=== PATIENT | female | born 1930 | race Caucasian/White ===

== ENCOUNTER 2016-05-16 11:45 | Inpatient (IN) | payer OTHER, MEDICARE ==
[2016-05-16] MEDS ORDERED: ASPIRIN EC 325 MG TAB PO ONE (11:58)
[2016-05-16] MEDS ORDERED: diphenhydrAMINE 25 MG CAP PO ONE (11:58)
[2016-05-16] MEDS ORDERED: DIAZEPAM 5 MG TAB PO ONE (11:58)
[2016-05-16] MEDS ORDERED: NS 1,000 ML IV ONE (11:58)
[2016-05-16] MEDS ORDERED: FAMOTIDINE 20 MG TAB PO ONE (11:58)
--- NOTE | 2016-05-16 12:56 | CPEKG ---
Heart Rate: 90 RR Interval: 667 P-R Interval: 132 QRSD Interval: 70 QT Interval: 368 QTC Interval: 451 P [place]: 58 QRS [place]: 53 T Wave [place]: 8 EKG Severity - NORMAL ECG - EKG Impression: SINUS RHYTHM Electronically Signed By: Alex Nicole 16-May-2016 15:43:32
[2016-05-16] MEDS ORDERED: FAMOTIDINE 20 MG TAB ONE (13:01)
[2016-05-16 13:15] LABS: % IMMATURE GRANULYOCYTES 0.5 % (0.0-1.1); ABSOLUTE IMMATURE GRANULOCYTES 0.03 10^3/uL (0.00-0.10); ADD DIFF? NO; ADD MORPH? NO; ADD SCAN? NO; ATYPICAL LYMPHOCYTE FLAG 10 (0-99); FRAGMENT RBC FLAG 0 (0-99); HEMATOCRIT 43.2 % (38.0-47.0); LEFT SHIFT FLG 0 (0-99); LIPEMIA HEMOLYSIS FLAG 90 (0-99); MEAN CELL HEMOGLOBIN 33.7 pg (27.9-34.1); MEAN CELL HEMOGLOBIN CONCENTR. 34.7 g/dL (32.4-36.7); MEAN CELL VOLUME 97.1 fL (81.5-99.8); MEAN PLATELET VOLUME 10.2 fL (8.7-11.7); PLATELET CLUMPS FLAG 10 (0-99); PLATELET COUNT 222 10^3/uL (150-400); RED BLOOD CELL COUNT 4.45 10^6/uL (4.18-5.33); RED CELL DISTRIBUTION WIDTH 12.7 % (11.5-15.2)
[2016-05-16 13:22] LABS: INR 0.94 (0.83-1.16); PROTIME(PATIENT) 12.5 SEC (12.0-15.0)
[2016-05-16 13:24] LABS: ANION GAP 15 mEq/L (8-16); CALCIUM 9.2 mg/dL (8.5-10.4); CARBON DIOXIDE 24 mEq/l (22-31); CHLORIDE 101 mEq/L (97-110); CHOLESTEROL 169 mg/dL (140-220); CHOLESTEROL/HDL RATIO 2.45 RATIO (1.00-4.44); CREATININE 0.6 mg/dL (0.6-1.0); GLOMERULAR FILTRATION RATE > 60; GLUCOSE 87 mg/dL (70-100); HIGH DENSITY LIPOPROTEIN 69 mg/dL (40-85); LDL/HDL RATIO 1.22 RATIO (1.00-3.22); LOW DENSITY LIPOPROTEIN 84 mg/dL (80-100); MAGNESIUM 1.8 mg/dL (1.6-2.3); NON-HIGH DENSITY LIPOPROTEIN 100 mg/dL (90-129); POTASSIUM 3.5 mEq/L (3.5-5.2); SODIUM 140 mEq/L (134-144); TRIGLYCERIDE 83 mg/dL (35-135); VERY LOW DENSITY LIPOPROTEINS 16 mg/dL (8-25)
[2016-05-16] MEDS ORDERED: LIDOCAINE 1% 30 ML SDV ONE (13:43)
[2016-05-16] MEDS ORDERED: fentaNYL 100 MCG/2 ML INJ ONE (13:44)
[2016-05-16] MEDS ORDERED: IOPAMIDOL (ISOVUE-370) 150 ML BTL IV ONE ×2 (13:44→15:00)
[2016-05-16] MEDS ORDERED: MIDAZOLAM 2 MG/2 ML VIAL ONE (13:44)
[2016-05-16] MEDS ORDERED: VERAPAMIL 5 MG/2 ML VIAL ONE (14:18)
[2016-05-16] MEDS ORDERED: HEPARIN 10,000 UNIT/10 ML MDV ONE (14:18)
[2016-05-16 14:25] LABS: CK-MB INTERPRETATION NEGATIVE (NEGATIVE); TROPONIN I 0.013 ng/mL (0-0.034)
[2016-05-16 14:54] LABS: CREATINE KINASE-MB FRACTION 5.45 ng/mL (0-3.19)
--- NOTE | 2016-05-16 14:55 | SUROPNOTE ---
[facility] Operative Report - Surgery Date of Procedure:05/16/2016 Indication: This patient is an 85 year old woman, with known coronary disease s/ p MN and LAD stenting in 2005, known distal circumflex occlusion, hyperlipidemia , and COPD, presenting with five days of chest pain, aggravated by exertion, now accelerating and occurring at rest. It is associated shortness of breath. [place] cardiovascular class IV angina. Considering the patient's resting chest pain and known 3-vessel coronary disease, stress testing was not performed. Will proceed with right/left heart catheterization. Procedures performed: 1. Right and Left heart catheterization with left ventricular and selective coronary angiography. Description of procedure: Description, risks, benefits and alternatives were discussed in detail. Informed consent was obtained. The patient was brought to the catheterization laboratory where a timeout was performed. The right arm was sterilely prepped and draped. 2% lidocaine utilized for local anesthetic. A 5-Ivorian hemostatic sheath was placed in the right brachial vein utilizing the IV site already present. A 5-Ivorian PWP catheter was utilized for right heart catheterization. Following the right heart catheterization, a 5/6-Ivorian slender hemostatic sheath placed right radial artery utilizing micropuncture technique. Intraarterial verapamil and intravenous heparin was administered. Diagnostic coronary angiography performed with 6-Ivorian, Angelina left-3.5 and Angelina right -4 catheter. Catheters were passed over a J glidewire and 0.035 guidewire. Pigtail catheter was then utilized for left heart catheterization and left ventricular angiography, however there was difficulty crossing the valve initially with the Pigtail catheter. Instead, The JR4 catheter was passed over a straight Glidewire to ultimately cross the valve, and was then exchanged for the Pigtail catheter. Left heart catheterization and left ventricular angiography was performed. Arterial sheath was removed and TR band was placed. Findings: 1. Hemodynamics: Right atrial pressure mean of 8, right ventricular pressure 35 /5/9 end-diastolic, pulmonary artery pressure 35/14, mean of 22, pulmonary capillary wedge pressure mean of 10 with no significant V wave. Aortic pressure 105/58, mean of 69, left ventricular pressure 89/8/14 end-diastolic. There is a small (<10mmHg) pull back gradient across the aortic valve. Aortic valve area calculated at 2.05cm^2. 2. Saturations: Superior vena cava 76.2%, main pulmonary artery 67.6%, Ao 95.7% . Assumed Ray cardiac output 4.9L/min with cardiac index of 2.9L/min/m2. 2. Left ventricle: The left ventricle appears normal in size. Left ventricle is normal shape. Segmental wall motion is normal. The left ventricle is hyperdynamic with an ejection fraction of 75%. There are no filling defects or significant mitral regurgitation. The aortic root and ascending aorta appears normal, there is no aneurysm formation. 3. Coronary angiography: Left main: The left main bifurcates. There is calcific disease with 25% ostial tapering and otherwise luminal irregularities, but no critical lesion. 4. Left anterior descending: This is a moderately large vessel continuing around the apex. Previous proximal LAD stent and balloon angioplasty of the proximal diagonal branch are widely patent. 5. Circumflex: The circumflex has a moderate size high-lateral/ramus intermedius and a relatively small first obtuse marginal branch. The distal circumflex is chronically totally occluded, and a second obtuse marginal and a small posterolateral branch fills from left to left collaterals. The high- lateral branch contains mild-moderate diffuse disease and the first obtuse marginal branch contains diffuse 30-50% disease. 6. Right coronary: Moderately large dominant vessel with proximal and distal 50 % disease. No evidence of progression of disease since 2005. Overall Impression: 1. Moderate three-vessel coronary artery disease, however with no areas of severe disease. This is relatively unchanged from previous. 2. Normal resting right and left heart hemodynamics. 3. Hyperdynamic left ventricle with ejection fraction of 75%. 4. Chest pain, appearing to be non-cardiac. 5. 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 Plan: 1. Hospital admission for falls, dyspnea, and chest pain of unclear etiology. 2. Continue to recommend aggressive risk modification (however the patient has elected to not treat her lipids in the past). 3. Close clinical follow up. Portions of this chart were entered by a scribe. I have reviewed this chart and agree with the documentation. Report scribed for Dr. Brent Welch. Report scribed by Edna Nicholson.
[2016-05-16] MEDS ORDERED: HYDROCODONE/APAP 5/325 TAB PO PRN (15:25)
[2016-05-16] MEDS ORDERED: OXYCODONE/APAP 5/325 TAB PO PRN (15:25)
[2016-05-16] MEDS ORDERED: ONDANSETRON 4 MG/2 ML VIAL IVP PRN (15:25)
[2016-05-16] MEDS ORDERED: NITROGLYCERIN 0.4 MG BTL SL PRN (15:25)
[2016-05-16] MEDS ORDERED: ATROPINE SULFATE 1 MG/10 ML SYR IVP PRN (15:25)
[2016-05-16] MEDS ORDERED: IOPAMIDOL (ISOVUE 370) 100 ML BTL IV ONE (20:05)
--- NOTE | 2016-05-16 21:15 | CT ---
CT Pulmonary Angiogram Clinical Indications: Dyspnea, syncope, positive D-dimer of 1.92. Technique: Thinly collimated multidetector helical CT imaging was performed through the chest while 85 mL Isovue-370 were injected intravenously, without complication. The images were then transferred to an independent workstation where multiplanar and three-dimensional reconstructions were performed by the interpreting physician and reviewed at multiple windows. Dose reduction techniques were util ized. Findings Chest: No pneumonia, pneumothorax, nodules, or pleural effusions are present. Heart size is normal and there is no pericardial effusion. No adenopathy and no pulmonary masses are found. Large hiatal hernia is present. Heart size is normal. No pericardial effusion. Coronary calcifications appear severe. CT Pulmonary Angiogram: Respiratory motion artifacts degrade imaging of the small branches in the lo wer lobes. No convincing intraluminal filling defects are seen in the pulmonary arterial system to s uggest pulmonary embolus. The thoracic aorta has a normal contour, without evidence of aneurysm or d issection. Three right renal arteries are incidentally noted. Impressions 1. No pulmonary emboli. 2. Large hiatal hernia.
--- NOTE | 2016-05-17 10:45 | SOAPPROG ---
[facility] Progress Note Assessment/Plan: Assessment: Cardiology ([facility]) 1. Admit yesterday from our office w/ symptoms c/w accelerating angina, shortness of breath and possible CHF. She described worsening chest pain with both exertion and rest, however different in quality than her prior angina. Taken to shellfish processing laborer yesterday which showed diffuse moderate CAD w/o critical lesions. Chest CTA was negative for PE. Symptoms are not entirely explained. 2. CAD s/p remote anterior DC and LAD stent in 2005. Patient takes aspirin 81 mg as her sole medication. 3. COPD. 4. Worsening bilateral lower extremity edema, likely dependent in nature. LV systolic function is normal. 5. Hyperlipidemia w/ refusal to treat. 6. History of tobacco use, quit in 2005. 7. Aortic valve sclerosis w/o stenosis. 8. Frequent falls / severe gain instability in the setting of adult failure to thrive. PT evaluation most consistent w/ severe deconditioning. Patient lives independently. Patient was seen yesterday in conjunction with son who is very concerned about her home safety. Plan: 1. Hospitalist consult and OT/PT evaluation. Consider SNF placement. 2. Continue daily aspirin. 3. Change to inpatient status due to fall risk, unsafe to go home, further diagnostic testing. 05/19/16 08:06 Objective: Vital Signs Temp Pulse Resp BP Pulse Ox 36.7 C 98 18 118/68 92 05/17/16 07:32 05/17/16 07:32 05/17/16 07:32 05/17/16 07:32 05/17/16 07:32 Laboratory Results 05/16/16 13:00 05/16/16 13:00 05/16/16 05/17/16 05/18/16 05:59 05:59 05:59 Intake Total 1250 Balance 1250 PT 12.5 SEC (12.0-15.0) 05/16/16 13:00 INR 0.94 (0.83-1.16) 05/16/16 13:00 ICD10 Worksheet Patient Problems: Problems Problem Status Diagnosed Chest pain Acute Coronary artery disease Acute
[2016-05-17] MEDS: ASPIRIN 81 MG CHEWABLE TAB PO SCH (15:53)
[2016-05-17 18:52] LABS: COLOR YELLOW; LEUKOCYTE ESTERASE,URINE 1+ (NEGATIVE); NITRITE,URINE NEGATIVE (NEGATIVE)
[2016-05-17 19:19] LABS: RBC,URINE NONE SEEN /hpf (0-3)
--- NOTE | 2016-05-17 20:04 | GCON ---
[f rep st] CONSULTATION INTERNAL MEDICINE CONSULTATION DATE OF CONSULTATION: 05/17/2016 REASON FOR CONSULTATION: Failure to thrive, weakness. HISTORY OF PRESENT ILLNESS: This is an 85-year-old female, who was admitted by Cardiology. She has a history coronary artery disease and came to the sling operator's office with several days of chest di scomfort. She says that it is intermittent and moderate in nature. It is not worse with moving or w ith activity. She denies any shortness of breath. However, she has been having also some unsteadine ss and has fallen a few times. She fell once around [facility] and hit her head on a car. This f all was on the ice. However, 2 days ago she fell again. She states at that time she just woke up a nd felt unsteady and had a fall. She continues to feel unsteady. She denies any dizziness. She als o denies any focal weakness. She denies any dysuria. No fevers or chills. No abdominal pain. No d iarrhea. No new medications. She underwent angiogram, which did not show any worsening of her coronary disease. She does have mirian e aortic sclerosis, but no stenosis. She also had a CTA of her chest, which did not show any pulmona ry embolism. Physical Therapy did see her today and thought she was quite weak and needed a nursing home facility. REVIEW OF SYSTEMS: Ten-point review of systems was obtained and other than stated above was negative . PAST MEDICAL HISTORY: 1. Coronary artery disease. 2. COPD. 3. History of cholecystectomy. MEDICATIONS: Only aspirin. SOCIAL HISTORY: Quit smoking in 2005 when she had her heart attack. Lives alone. FAMILY HISTORY: Both parents are . PHYSICAL EXAM: VITAL SIGNS: Afebrile, blood pressure is 114/66, heart rate is 90, oxygen saturation 90-91% on room air. GENERAL: The patient is well developed, no apparent distress. HEENT: Nonicte selene sclerae. Extraocular movements intact. There is a small amount ecchymosis on the right cheek. NECK: Supple. No thyromegaly. LUNGS: Good effort with decreased breath sounds, but no wheezing. CARDIOVASCULAR: Regular rate and rhythm. There is a 2/6 systolic murmur, heard best at the right up per sternal border. ABDOMEN: Positive bowel sounds. Soft, nontender, nondistended. No hepatosplen omegaly. EXTREMITIES: No clubbing, cyanosis, or edema. SKIN: Without rash. Warm, dry, and intact . NEUROLOGIC: Alert and oriented x3. Has equal strength in all 4 extremities. PSYCH: Normal mood and affect. LABS: CBC is normal. D-dimer is negative. Chemistries completely normal. IMAGING: EKG, personally reviewed and interpreted, shows normal sinus rhythm, no ischemic changes. ASSESSMENT: An 85-year-old female, presenting with falls and generalized weakness, as well as chest pain. PLAN: 1. Chest pain: This appears to be noncardiac. Probably could be some musculoskeletal pain. Could try a little bit of antiinflammatories in case. This seems to be mild in severity. 2. Falls and overall weakness: I am not sure why she is having these. There are no focal neurologi flora findings to suggest stroke. However, could possibly consider MRI if she is not improving. We wi ll check a UA. I do wonder if maybe her first fall in April caused some type of concussion and th us, some generalized weakness. At this point, she does need either a nursing home facility or to be home with 24 hour care. 3. History of coronary artery disease. 4. COPD: This appears to be stable. 5. Aortic sclerosis: There does not seem to be aortic stenosis. Thank you for this consultation. Will follow along with you. /[id number]/MODL
[2016-05-18] MEDS: ASPIRIN 81 MG CHEWABLE TAB PO SCH (08:39)
--- NOTE | 2016-05-18 14:36 | HOSPPROG ---
Hospitalist Progress Note Assessment/Plan: This 85-year-old female new to my care presenting with # weakness and falls which I suspect is due to deconditioning. Patient refuses care home facility placement. # pyuria which seems to be asymptomatic -consider starting antibiotics if she develops symptoms of a UTIs such as pain with urination, frequency, fever, abdominal pain, etc... # chest pain seems atypical -will defer further workup to Cardiology # COPD (stable) Disposition: Patient would like to be discharged under the care of her son. I will discuss this with Dr. Welch and his team Subjective: Patient refuses to go to care home facility. Her chest pain is better today. She is tolerating a diet. She has no other complaints. Objective: Vital Signs Temp Pulse Resp BP Pulse Ox 36.4 C 89 20 116/73 92 05/18/16 11:11 05/18/16 11:11 05/18/16 11:11 05/18/16 11:11 05/18/16 11:11 Laboratory Results 05/16/16 13:00 05/16/16 13:00 05/17/16 05/18/16 05/19/16 05:59 05:59 05:59 Intake Total 1250 200 Balance 1250 200 PT 12.5 SEC (12.0-15.0) 05/16/16 13:00 INR 0.94 (0.83-1.16) 05/16/16 13:00 - Physical Exam Constitutional: no apparent distress, appears nourished, not in pain Cardiovascular: regular rate and rhythym, no murmur, rub, or gallop Respiratory: no respiratory distress, no rales or rhonchi, clear to auscultation Gastrointestinal: normoactive bowel sounds, soft, non-tender abdomen, no palpable masses ICD10 Worksheet Patient Problems: Problems Problem Status Diagnosed Chest pain Acute Coronary artery disease Acute
[2016-05-19] MEDS: ASPIRIN 81 MG CHEWABLE TAB PO SCH (08:17)
--- NOTE | 2016-05-19 09:54 | SOAPPROG ---
[facility] Progress Note Assessment/Plan: Assessment: Cardiology ([facility]) 1. Admit yesterday from our office w/ symptoms c/w accelerating angina, shortness of breath and possible CHF. She described worsening chest pain with both exertion and rest, however different in quality than her prior angina. Taken to cardiac cath lab technologist yesterday which showed diffuse moderate CAD w/o critical lesions. Chest CTA was negative for PE. Symptoms are not entirely explained. 2. CAD s/p remote anterior MT and LAD stent in 2005. Patient takes aspirin 81 mg as her sole medication. Previously on beta serenity, however will not resume due to borderline BPs and frequent falls. 3. Frequent falls / severe gain instability in the setting of adult failure to thrive. PT evaluation most consistent w/ severe deconditioning. Patient lives independently. 4. COPD. 5. PVCs, asymptomatic. 6. Worsening bilateral lower extremity edema, likely dependent in nature. LV systolic function is normal. 7. Hyperlipidemia w/ refusal to treat. 8. History of tobacco use, quit in 2005. 9. Aortic valve sclerosis w/o stenosis. Plan: 1. Awaiting placement in SNF, possibly [facility]. Case mgmt working with patient and son Jean-Pierre. 2. Continue aspirin. Objective: Vital Signs Temp Pulse Resp BP Pulse Ox 36.4 C 77 18 109/63 96 05/19/16 08:00 05/19/16 08:00 05/19/16 08:00 05/19/16 08:00 05/19/16 08:00 Laboratory Results 05/16/16 13:00 05/16/16 13:00 05/18/16 05/19/16 05/20/16 05:59 05:59 05:59 Intake Total 200 600 Balance 200 600 PT 12.5 SEC (12.0-15.0) 05/16/16 13:00 INR 0.94 (0.83-1.16) 05/16/16 13:00 ICD10 Worksheet Patient Problems: Problems Problem Status Diagnosed Chest pain Acute Coronary artery disease Acute
--- NOTE | 2016-05-19 10:01 | HOSPPROG ---
Hospitalist Progress Note Assessment/Plan: This 85-year-old female new to my care presenting with # weakness and falls which I suspect is due to deconditioning. Patient refuses fpc facility placement. #adult failure to thrive # pyuria which seems to be asymptomatic -consider starting antibiotics if she develops symptoms of a UTIs such as pain with urination, frequency, fever, abdominal pain, etc... # chest pain seems atypical -cardiac cath report reviewed # COPD (stable) Disposition: Patient would like to be discharged under the care of her son however she does not seem strong enough to return to a home living environment. Pt is now considering snf Subjective: no new comlaints. denies pain with urination or frequency Objective: Vital Signs Temp Pulse Resp BP Pulse Ox 36.4 C 77 18 109/63 96 05/19/16 08:00 05/19/16 08:00 05/19/16 08:00 05/19/16 08:00 05/19/16 08:00 Laboratory Results 05/16/16 13:00 05/16/16 13:00 05/18/16 05/19/16 05/20/16 05:59 05:59 05:59 Intake Total 200 600 Balance 200 600 PT 12.5 SEC (12.0-15.0) 05/16/16 13:00 INR 0.94 (0.83-1.16) 05/16/16 13:00 - Physical Exam Constitutional: no apparent distress, appears nourished, not in pain Cardiovascular: regular rate and rhythym, no murmur, rub, or gallop Respiratory: no respiratory distress, no rales or rhonchi, clear to auscultation ICD10 Worksheet Patient Problems: Problems Problem Status Diagnosed Chest pain Acute Coronary artery disease Acute
[2016-05-20] MEDS: ASPIRIN 81 MG CHEWABLE TAB PO SCH (09:26)
--- NOTE | 2016-05-20 11:22 | HOSPPROG ---
Hospitalist Progress Note Assessment/Plan: This 85-year-old female new to my care presenting with # weakness and falls which I suspect is due to deconditioning. Patient refuses shelter facility placement. #adult failure to thrive # pyuria which seems to be asymptomatic -consider starting antibiotics if she develops symptoms of a UTIs such as pain with urination, frequency, fever, abdominal pain, etc... # chest pain seems atypical -cardiac cath report reviewed # COPD (stable) Disposition: Patient would like to be discharged under the care of her son however she does not seem strong enough to return to a home living environment. Pt is now considering snf Subjective: no chest pain or sob. wants to go home with son. reluctant to go to snf Objective: Vital Signs Temp Pulse Resp BP Pulse Ox 36.4 C 84 18 113/78 93 05/20/16 08:00 05/20/16 08:00 05/20/16 08:00 05/20/16 08:00 05/20/16 08:00 Laboratory Results 05/16/16 13:00 05/16/16 13:00 05/19/16 05/20/16 05/21/16 05:59 05:59 05:59 Intake Total 600 680 Balance 600 680 PT 12.5 SEC (12.0-15.0) 05/16/16 13:00 INR 0.94 (0.83-1.16) 05/16/16 13:00 - Physical Exam Constitutional: no apparent distress, appears nourished, not in pain Cardiovascular: regular rate and rhythym, no murmur, rub, or gallop Respiratory: no respiratory distress, no rales or rhonchi, clear to auscultation Gastrointestinal: normoactive bowel sounds, soft, non-tender abdomen, no palpable masses ICD10 Worksheet Patient Problems: Problems Problem Status Diagnosed Chest pain Acute Coronary artery disease Acute Failure to thrive in adult Acute
--- NOTE | 2016-05-20 11:23 | PDIAF ---
- Diagnosis Diagnosis: weakness and deconditioning Code Status: Full Code - Medication Management Discharge Medications: Medications to Continue on Transfer Aspirin [Aspirin 81mg (*)] 81 mg PO DAILY #0 tab.chew 05/18/16 [Last Taken Unknown] Discharge Medications: Refer to the Discharge Home Medication list for PRN reason. - Orders Services needed: Home Care, Registered Nurse, Master Binder Layer, Physical Therapy Home Care Face to Face: I certify that this patient was under my care and that I had the required [id number] encounter meeting the encounter requirements on the discharge day. My findings support the fact that the patient is homebound as defined in CMS Chapter 7 Medicare Benefits Manual 30.1.1, The condition of the patient is such that there exists a normal inability to leave home and consequently, leaving home would require a considerable and taxing effort. Diet Recommendation: no restrictions on diet Diet Texture: Regular Texture Diet Additional: [facility] - Follow Up Care Current Providers and Referrals: Cori Abernathy MD [Primary Care Provider] - Brent Welch MD [Medical Doctor] - follow up in 2 weeks
[2016-05-20 13:36] VITALS: BP 104/67; PULSE 93; RESP 17; TEMP 97.9; O2SAT 94
--- NOTE | 2016-05-23 11:41 | ECHO ---
[id number] + + [address] : : [place] [address] : : [phone] + + Adult Echocardiographic Report + ----+ :Name: Anabela RAIN Date: 05/16/2016 12:12 PM : : Hospital Admission Number: [id number] Location: [facility]: :: 1930 Gender: Female Height: 66 in : :Age: 85 yrs Race: WH Weight: 127 lb : :Reason For Study: Eval LV function : : BSA: 1.6 meters2 : + ----+ MMode/2D Measurements & Calculations IVSd: 0.47 cm LVIDd: 4.3 cm FS: 48.9 % Ao root diam: 3.2 cm LVPWd: 0.80 cm LVIDs: 2.2 cm EDV(Teich): 83.8 ml LA dimension: 3.4 cm ESV(Teich): 16.3 ml EF(Teich): 80.5 % LVOT diam: 1.7 cm LVOT area: 2.2 cm2 Normal Measurement Values: + + :LVIDd (3.5-5.7cm) IVSd (0.6-1.1cm) LVPWd (0.6-1.1cm) Aortic Root (2.0-3.7cm)Left Atrium (1.5-4.0cm): :LV Vol(d) (76-115ml) LV Vol(s) (29-48ml) Ejec Fraction (50-65%)PV Dawood (0.6- 1.2m/s) TV Dawood (0.4-1.0m/s) : :MV E Dawood (0.8-1.0m/s)MV A Dawood (0.3-1.0m/s)LVOT Dawood (0.7-1.2m/s) Asc Ao Dawood ( 0.9-1.8m/s) : + + Doppler Measurements & Calculations MV E max dawood: Ao mean PG: AI max dawood: LV V1 mean P.7 cm/sec 7.9 mmHg 421.3 cm/sec 2.0 mmHg MV A max dawood: Ao V2 mean: AI max P.0 mmHgLV V1 mean: 98.2 cm/sec 132.4 cm/sec AI dec slope: 59.9 cm/sec MV E/A: 0.66 Ao V2 VTI: 37.1 cm LV V1 VTI: 287.8 cm/sec2 20.0 cm JUSTIN(I,D): 1.2 cm2 AI P1/2t: 428.7 msec SV(LVOT): 44.9 ml Left Ventricle The left ventricle is normal in size. There is normal left ventricular wall thickness. The left ventricle is hyperdynamic. Ejection Fraction = 70-75%. E/a wave reversal. There is Doppler evidence for diastolic dysfunction. No regional wall motion abnormalities noted. Right Ventricle The right ventricle is normal in size and function. Atria The left atrial size is normal. Right atrial size is normal. The interatrial septum is intact with no evidence for an atrial septal defect. Mitral Valve There is mild mitral annular calcification. There is no evidence of mitral valve prolapse. There is no mitral valve stenosis. There is trace to mild mitral regurgitation. Tricuspid Valve Normal tricuspid valve. There is trace tricuspid regurgitation. Aortic Valve The aortic valve opens well. Moderate-Severe Aortic Valve Calcification. Mild valvular aortic stenosis. Mild aortic regurgitation. Pulmonic Valve The pulmonic valve is normal in structure and function. There is no pulmonic valvular regurgitation. Great Vessels The aortic root is normal size. Pericardium/Pleural There is no pericardial effusion. There is a fat pad seen. Conclusion A complete two-dimensional transthoracic echocardiogram was performed (2D, M-mode, Doppler and color flow Doppler). The left ventricle is hyperdynamic. Ejection Fraction = 70-75%. E/a wave reversal. There is mild mitral annular calcification. There is trace to mild mitral regurgitation. There is trace tricuspid regurgitation. Moderate-Severe Aortic Valve Calcification Mild aortic regurgitation. There is a fat pad seen. There is Doppler evidence for diastolic dysfunction. Mild valvular aortic stenosis. Final Reading Physician: Liliya Vasquez signed on 05/23/2016 11:37 AM Ordering Physician: PAPI YOO Performed By: Priya Hayes, EDIN
--- NOTE | 2016-05-24 10:16 | GDS ---
[f rep st] DISCHARGE SUMMARY DISCHARGE DIAGNOSES: 1. Chest pain and shortness of breath, noncardiac etiology. 2. Moderate coronary artery disease, with history of anterior myocardial infarction, and left anteri or descending stent in 2005. 3. Adult failure to thrive. 4. Frequent falls. 5. Chronic obstructive pulmonary disease. 6. Bilateral lower extremity, dependent. 7. Premature ventricular contractions. 8. Hyperlipidemia. 9. History of tobacco use. 10. 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 11. Asymptomatic pyuria. HOSPITAL PROCEDURES: 1. Left heart catheterization with left ventriculography and selective coronary angiography. 2. Chest CT angiogram. HOSPITAL CONSULTANTS: Tommy Mcdaniel MD, hospitalist service. HOSPITAL COURSE: The patient is an 85-year-old female with diagnoses as above, who [facility] May [facility], with complaint of chest pain, shortness of breath, and lower ext remity edema with characterizations consistent with accelerating angina and possible congestive heart failure. She was [facility] the same day by Dr. Welch, and underwent left heart cathet erization and diagnostic angiography, which showed essentially no progression of her coronary disease since 2005, without any progressive lesions, and no intervention was performed. A D-dimer was check ed, which was positive. Therefore, subsequent chest CT angiography was performed, which was negative for pulmonary embolic disease. Her symptoms were essentially deemed to be noncardiac in nature. Ho wever, due to frequent falls and significant gait instability, it was decided to keep the patient ove rnight for further evaluation. She did undergo assessment by the physical therapy service as well as the hospitalist service, and demonstrated poor ability to perform activities of daily living that wo uld merit a return to going back to live independently in her home. The patient's hospital stay was complicated by the patient's resistance to go to a longterm [facility]. Her son, Jean-Pierre, was highly involved in the patient's care, and underwent extensive conversatio ns with myself, the hospitalist service, and Case Management, leading up to her discharge, to identif y proper placement for the patient. The remainder of her stay was fairly unremarkable. Her vital si gns were stable throughout the stay. Telemetry monitoring was uneventful aside from PVCs, and vital signs otherwise showed occasional hypotension without significant hypertension. There was discussion of whether to resume beta-blockade in this patient, but this was felt to be not an optimal drug sawant ce for her, as it may complicate her situation. After extensive conversation, the patient is being discharged to her son's home for a period of time, and there will be strong consideration for placement in a longterm facility for physical reha bilitation with an optimal outcome, with the patient ultimately being able to return to live independ ently. DISCHARGE MEDICATIONS: Aspirin 81 mg p.o. once daily. DISCHARGE INSTRUCTIONS: Again,the patient will be discharged to her son's home, and not to skilled n ursing facility at this time. Placement in a longterm facility is being strongly considered b y the family, but is complicated by the patient's refusal to go. She will remain on baby aspirin faith ly without the addition of antihypertensive or statin therapy, as the patient has refused this in the past. We will continue to follow the patient in the clinic, and address her cardiovascular care as deemed appropriate. /[id number]/MODL
== END 2016-05-20 15:19 | disposition home health service (06) | DRG 287 ==
LOC: FCATH 11:45 → F2W 14:47 → OBSVTOIN 05-17 10:37 → INTOOBSV 05-17 10:37 → OBSVTOIN 05-17 17:03
PROVIDERS: ADMIT Internal Medicine Interventional Cardiology; ATTEND Internal Medicine Interventional Cardiology
PROC: B2111ZZ Fluoroscopy of Multiple Coronary Arteries using Low Osmolar Contrast (ICD-10-PCS; principal; 2016-05-16)
PROC: B2151ZZ Fluoroscopy of Left Heart using Low Osmolar Contrast (ICD-10-PCS; principal; 2016-05-16)
PROC: 4A023N8 Measurement of Cardiac Sampling and Pressure, Bilateral, Percutaneous Approach (ICD-10-PCS; principal; 2016-05-16)
DX: R07.89 Other chest pain (principal); I25.10 Atherosclerotic heart disease of native coronary artery without angina pectoris; R62.7 Adult failure to thrive; I25.82 Chronic total occlusion of coronary artery; R60.0 Localized edema; R26.9 Unspecified abnormalities of gait and mobility; E78.5 Hyperlipidemia, unspecified; I10 Essential (primary) hypertension; J44.9 Chronic obstructive pulmonary disease, unspecified; I25.2 Old myocardial infarction; I35.8 Other nonrheumatic aortic valve disorders; Z95.5 Presence of coronary angioplasty implant and graft; Z87.891 Personal history of nicotine dependence; Z91.81 History of falling; Z79.82 Long term (current) use of aspirin
CPT/HCPCS: 97116-GP; 97162-GP; 97165-GO; 97530-GP; C1769; G0378; G0379; G8978-GP-CK; G8979-GP-CI; G8987-GO-CJ; G8988-GO-CI; J1644; J2250; J3010; Q9967